=== PATIENT | female | born 1970 | race Caucasian/White ===

== ENCOUNTER 2019-08-13 11:42 | Emergency (ER) | payer OTHER ==
[~2019-08-13] VITALS: Ht 162.6 cm; Wt 68.0 kg
[2019-08-13] MEDS ORDERED: ZIAC 2.5-6.251 EACH PO (12:21)
== END 2019-08-13 15:30 | disposition home or self-care (01) ==
LOC: ER 11:42
DX: B34.9 Viral infection, unspecified (principal)